=== PATIENT | male | born 1960 | race Caucasian/White ===

== ENCOUNTER 2016-11-18 14:00 | Inpatient (IN) | payer OTHER ==
[~2016-11-18] VITALS: Ht 165.1 cm; Wt 121.0 kg
[~2016-11-18 14:00] MED LIST: ADVAIR 250/501 DISK IH; ADVAIR HFA120 INHALA IH; ADVIL,NUPRIN,M200 MG PO; ALBUTEROL SULF8.5 GM IH; ATORVASTATIN CA80 MG PO; AZITHROMYCIN500 M1 PO; CARVEDILOL12.5 MG PO; CEFTIN250 MG PO; CEFTIN500 MG PO; CHILD ASPIRIN81 M1 PO; DUONEB 2.5-0.5 M3 ML AEROSOL; EFFIENT10 MG PO; FUROSEMIDE40 MG PO; LISINOPRIL20 MG PO; NICOTINE PATCH1 EAC2 TD; PREDNISONE10 MG PO; PREDNISONE2.5 MG PO; PROVENTIL,2.5 MG/0.5 AEROSOL; PROVENTIL,2.5 MG/3 M IH; RAYOS5 MG PO; SPIRIVA RESPIMAT4 GM IH; SULFASALAZINE500 MG PO; THEOPHYLLINE400 MG PO
[2016-11-18 15:03] LABS: EOSINOPHIL (%) 4.1 % (0-5); EOSINOPHIL COUNT 0.2 K/uL (0-0.3); HEMATOCRIT 51.4 % (38.0-50.0); IMMATURE GRANULOCYTE (%) 0.3 % (0.0-0.7); INSTRUMENT ABS NEUTROPHIL CT 4.2 K/uL; LYMPHOCYTE COUNT 0.8 K/uL (1.0-2.8); MCH 30.7 PG (29.0-34.0); MCV 102.6 FL (86-99); MEAN PLAT.VOLUME 10.2 uM^3 (9.0-12.4); MONOCYTE (%) 10.7 % (3-12); MONOCYTE COUNT 0.6 K/uL (0-0.8); NEUTROPHIL (%) 70.7 % (45-76); NEUTROPHIL COUNT 4.2 K/uL (1.8-6.4); PLATELET COUNT 159 K/uL (156-360); RBC DIS.WIDTH-SD 53.5 % (39-53); RED BLOOD COUNT 5.01 M/uL (4.00-5.50); WHITE BLOOD COUNT 5.9 K/uL (4.1-10.2)
[2016-11-18 15:12] LABS: CHLORIDE 97 mEq/L (99-109); POTASSIUM 4.6 mEq/L (3.7-5.4); PROTHROMBIN TIME 10.3 (9.2-11.2); PTT 26.8 (25-32); SODIUM 141 mEq/L (136-147)
[2016-11-18 15:15] LABS: GLUCOSE 146 mg/dL (70-99)
[2016-11-18 15:16] LABS: ANION GAP 7 MEQ/L (2-14)
[2016-11-18 15:17] LABS: TOTAL BILIRUBIN 0.8 mg/dL (0.0-1.0)
[2016-11-18 15:18] LABS: ALKALINE PHOSPHATASE 65 IU/L (3-129); GFR ESTIMATE (CALCULATED) > 59 mL/min/
[2016-11-18 15:19] LABS: UREA NITROGEN (BUN) 9 mg/dL (9-23)
[2016-11-18] MEDS ORDERED: LO-DOSE ASPIRIN81 M2 PO (16:44)
[2016-11-18] MEDS ORDERED: SULFASALAZINE500 MG PO (16:45)
[2016-11-18] MEDS ORDERED: SYMBICORT60 INHALAT IH (16:45)
[2016-11-18 17:34] LABS: BASE EXCESS 10.5 mEq/L (-3 to +3); BICARBONATE 41.3 mEq/L (22-26); CARBOXY HGB 3.6 % (0-5); METHEMOGLOBIN 0.4 % (0-1.5); PCO2 84 mm Hg (35-45); PO2 58 mm Hg (80-100)
[2016-11-18 17:35] LABS: COMMENTS - BLOOD GASES A+C+; DEVICE NC; O2 FLOW 5 L/MIN; SITE RR
[2016-11-18 19:00] LABS: TROP-I INTERPRETATION NEGATIVE; TROPONIN-I 0.03 ng/mL (0.0-0.30)
[2016-11-18 20:11] VITALS: BP 115/65
[2016-11-18 23:58] VITALS: BP 100/50
[2016-11-19 01:12] LABS: TROP-I INTERPRETATION NEGATIVE; TROPONIN-I 0.02 ng/mL (0.0-0.30)
[2016-11-19 04:14] VITALS: BP 117/69
[2016-11-19 06:39] LABS: ANION GAP 6 MEQ/L (2-14); CHLORIDE 94 MEQ/L (99-109); GFR ESTIMATE (CALCULATED) > 59 mL/min/; GLUCOSE 206 mg/dL (70-99); POTASSIUM 4.8 MEQ/L (3.7-5.4); SAMPLE HEMOLYSIS CHECK 0; SAMPLE ICTERIC CHECK 0; SAMPLE LIPEMIA CHECK 0; SODIUM 137 MEQ/L (136-147); UREA NITROGEN (BUN) 15 mg/dL (9-23)
[2016-11-19 06:42] LABS: TROP-I INTERPRETATION NEGATIVE; TROPONIN-I 0.03 ng/mL (0.0-0.30)
[2016-11-19 07:15] VITALS: BP 132/62
[2016-11-19 11:18] VITALS: BP 131/71
[2016-11-19 15:59] VITALS: BP 118/65
[2016-11-19 20:02] VITALS: BP 131/68
[2016-11-19 23:45] VITALS: BP 117/59
[2016-11-20 03:41] VITALS: BP 124/61
[2016-11-20 07:25] VITALS: BP 115/67
[2016-11-20 08:00] VITALS: BP 115/67
[2016-11-20 11:05] VITALS: BP 124/68
[2016-11-20 13:07] LABS: HEMATOCRIT 49.9 % (38.0-50.0); MCH 30.7 PG (29.0-34.0); MCHC 30.9 G/DL (30.0-36.0); MCV 99.6 FL (86-99); PLATELET COUNT 174 K/uL (156-360); RBC DIS.WIDTH-CV 14.1 % (11.8-14.6); RBC DIS.WIDTH-SD 51.6 % (39-53); RED BLOOD COUNT 5.01 M/uL (4.00-5.50)
[2016-11-20 13:12] LABS: WHITE BLOOD COUNT 13.6 K/uL (4.1-10.2)
[2016-11-20 13:30] LABS: ANION GAP 5 MEQ/L (2-14); CHLORIDE 95 MEQ/L (99-109); GFR ESTIMATE (CALCULATED) > 59 mL/min/; GLUCOSE 187 mg/dL (70-99); POTASSIUM 4.1 MEQ/L (3.7-5.4); SAMPLE HEMOLYSIS CHECK 0; SAMPLE ICTERIC CHECK 0; SAMPLE LIPEMIA CHECK 0; SODIUM 138 MEQ/L (136-147); UREA NITROGEN (BUN) 14 mg/dL (9-23)
[2016-11-20 15:21] VITALS: BP 127/69
[2016-11-20 19:14] VITALS: BP 136/71
[2016-11-21 00:01] VITALS: BP 127/68
[2016-11-21 03:30] VITALS: BP 117/71
[2016-11-21 07:16] VITALS: BP 141/75
[2016-11-21 10:55] VITALS: BP 132/66
[2016-11-21 13:16] LABS: HEMATOCRIT 49.2 % (38.0-50.0); MCH 31.1 PG (29.0-34.0); MCHC 31.3 G/DL (30.0-36.0); MCV 99.4 FL (86-99); MEAN PLAT.VOLUME 11.1 uM^3 (9.0-12.4); PLATELET COUNT 171 K/uL (156-360); RBC DIS.WIDTH-CV 14.3 % (11.8-14.6); RBC DIS.WIDTH-SD 51.6 % (39-53); RED BLOOD COUNT 4.95 M/uL (4.00-5.50); WHITE BLOOD COUNT 13.3 K/uL (4.1-10.2)
[2016-11-21 13:42] LABS: ANION GAP 7 MEQ/L (2-14); CHLORIDE 94 MEQ/L (99-109); GFR ESTIMATE (CALCULATED) > 59 mL/min/; GLUCOSE 224 mg/dL (70-99); SAMPLE HEMOLYSIS CHECK 0; SAMPLE ICTERIC CHECK 0; SAMPLE LIPEMIA CHECK 0; SODIUM 139 MEQ/L (136-147); UREA NITROGEN (BUN) 17 mg/dL (9-23)
[2016-11-21 15:29] VITALS: BP 120/60
[2016-11-21 21:13] VITALS: BP 114/59
[2016-11-22 04:00] VITALS: BP 110/60
[2016-11-22 08:50] VITALS: BP 129/69
[2016-11-22 10:37] LABS: HEMATOCRIT 50.6 % (38.0-50.0); MCH 30.7 PG (29.0-34.0); MEAN PLAT.VOLUME 11.2 uM^3 (9.0-12.4); PLATELET COUNT 169 K/uL (156-360); RBC DIS.WIDTH-CV 14.1 % (11.8-14.6); RBC DIS.WIDTH-SD 51.9 % (39-53); RED BLOOD COUNT 5.11 M/uL (4.00-5.50); WHITE BLOOD COUNT 10.5 K/uL (4.1-10.2)
[2016-11-22 10:45] LABS: ANION GAP 11 MEQ/L (2-14); CHLORIDE 98 MEQ/L (99-109); GFR ESTIMATE (CALCULATED) > 59 mL/min/; GLUCOSE 245 mg/dL (70-99); POTASSIUM 4.1 MEQ/L (3.7-5.4); SAMPLE HEMOLYSIS CHECK 0; SAMPLE ICTERIC CHECK 0; SAMPLE LIPEMIA CHECK 0; SODIUM 142 MEQ/L (136-147); UREA NITROGEN (BUN) 15 mg/dL (9-23)
[2016-11-22 12:18] VITALS: BP 144/77
[2016-11-22] MEDS ORDERED: NICOTINE PATCH1 EAC1 TD (12:22)
[2016-11-22] MEDS ORDERED: CEFDINIR300 MG PO (12:22)
[2016-11-22] MEDS ORDERED: PREDNISONE10 M1 PO (12:46)
[2016-11-22] MEDS ORDERED: OMEPRAZOLE20 MG PO (12:46)
== END 2016-11-22 14:20 | disposition home or self-care (01) | DRG 189 ==
LOC: EME 14:00 → EDOF 18:09 → 4EAST 18:09
PROVIDERS: Emergency Medicine; Physician Assistant; Student in an Organized Health Care Education/Training Program
DX: J96.22 Acute and chronic respiratory failure with hypercapnia (principal); J44.1 Chronic obstructive pulmonary disease with (acute) exacerbation; Z68.41 Body mass index [BMI] 40.0-44.9, adult; Z99.81 Dependence on supplemental oxygen; F10.10 Alcohol abuse, uncomplicated; T14.8 Other injury of unspecified body region; X50.1XXA Overexertion from prolonged static or awkward postures, initial encounter; E66.9 Obesity, unspecified; G47.33 Obstructive sleep apnea (adult) (pediatric); I25.10 Atherosclerotic heart disease of native coronary artery without angina pectoris; F17.210 Nicotine dependence, cigarettes, uncomplicated; I10 Essential (primary) hypertension; E78.5 Hyperlipidemia, unspecified; M19.90 Unspecified osteoarthritis, unspecified site; Z91.19 Patient's noncompliance with other medical treatment and regimen; Z95.1 Presence of aortocoronary bypass graft; Z95.5 Presence of coronary angioplasty implant and graft
CPT/HCPCS: 36600; 71010; 71101; 71250; 80048; 80053; 82803; 83735; 84484; 85025; 85027; 85610; 85730; 93005; 94640; 94640 76; 94667; 94668; 94799; 99202; 99281; 99285; J0696; J1650; J1885; J2920; J2930; J7050

== ENCOUNTER 2017-01-13 22:05 | Inpatient (IN) | payer OTHER ==
[~2017-01-13] VITALS: Ht 165.1 cm; Wt 124.5 kg
[~2017-01-13 22:05] MED LIST changes: +CEFDINIR300 MG PO; +LO-DOSE ASPIRIN81 M2 PO; +NICOTINE PATCH1 EAC1 TD; +OMEPRAZOLE20 MG PO; +PREDNISONE10 M1 PO; +SYMBICORT60 INHALAT IH
[2017-01-13 23:43] LABS: HEMATOCRIT 47.4 % (38.0-50.0); MCH 31.6 PG (29.0-34.0); MCHC 31.6 G/DL (30.0-36.0); MCV 99.8 FL (86-99); MEAN PLAT.VOLUME 10.6 uM^3 (9.0-12.4); PLATELET COUNT 133 K/uL (156-360); RBC DIS.WIDTH-CV 13.5 % (11.8-14.6); RBC DIS.WIDTH-SD 50.6 % (39-53); RED BLOOD COUNT 4.75 M/uL (4.00-5.50); WHITE BLOOD COUNT 7.7 K/uL (4.1-10.2)
[2017-01-13 23:54] LABS: CHLORIDE 97 mEq/L (99-109); POTASSIUM 4.4 mEq/L (3.7-5.4); SODIUM 135 mEq/L (136-147)
[2017-01-13 23:55] LABS: GLUCOSE 177 mg/dL (70-99)
[2017-01-13 23:57] LABS: ANION GAP 8 MEQ/L (2-14)
[2017-01-13 23:59] LABS: GFR ESTIMATE (CALCULATED) > 59 mL/min/
[2017-01-14] VITALS (21 sets, daily range): BP systolic 79–142; BP diastolic 45–82
[2017-01-14] LABS: UREA NITROGEN (BUN) 11 mg/dL (9-23)
[2017-01-14 00:03] LABS: TROP-I INTERPRETATION NEGATIVE; TROPONIN-I 0.03 ng/mL (0.0-0.30)
[2017-01-14 00:52] LABS: BASE EXCESS 6.7 mEq/L (-3 to +3); BICARBONATE 38.1 mEq/L (22-26); CARBOXY HGB 3.3 % (0-5); METHEMOGLOBIN 0.7 % (0-1.5); PO2 60 mm Hg (80-100)
[2017-01-14 00:53] LABS: PCO2 89 mm Hg (35-45)
[2017-01-14 00:54] LABS: COMMENTS - BLOOD GASES C+A+; DEVICE NC; O2 FLOW 4 L/MIN; SITE RR; TOTAL RESP RATE 32 resp/min; pH 7.24 (7.35-7.45)
[2017-01-14 02:51] LABS: BASE EXCESS 4.6 mEq/L (-3 to +3); BICARBONATE 34.3 mEq/L (22-26); CARBOXY HGB 2.3 % (0-5); METHEMOGLOBIN 0.7 % (0-1.5)
[2017-01-14 02:54] LABS: COMMENTS - BLOOD GASES C+A+; DEVICE VENTILATOR; FI02 80 %; MECHANICAL RATE 18 resp/min; MODE AC; PCO2 73 mm Hg (35-45); PO2 151 mm Hg (80-100); SITE LB; TOTAL RESP RATE 18 resp/min
[2017-01-14 02:55] LABS: PEEP 8 CM/H20; TIDAL VOLUME 550 ML; pH 7.28 (7.35-7.45)
[2017-01-14 09:08] LABS: METH RESISTANT S AUREUS PCR NEGATIVE (NEGATIVE); PROBE CHECK PASS; SPECIMEN PROCESSING CONTROL PASS
[2017-01-14 09:29] LABS: ANION GAP 8 MEQ/L (2-14); CHLORIDE 97 MEQ/L (99-109); MAGNESIUM 1.8 mg/dl (1.3-2.7); POTASSIUM 4.8 MEQ/L (3.7-5.4); SAMPLE HEMOLYSIS CHECK 0; SAMPLE ICTERIC CHECK 0; SAMPLE LIPEMIA CHECK 0; SODIUM 136 MEQ/L (136-147)
[2017-01-14 09:35] LABS: GFR ESTIMATE (CALCULATED) > 59 mL/min/; GLUCOSE 136 mg/dL (70-99); UREA NITROGEN (BUN) 15 mg/dL (9-23)
[2017-01-14 09:49] LABS: EOSINOPHIL (%) 0 % (0-5); HEMATOCRIT 43.9 % (38.0-50.0); IMMATURE GRANULOCYTE (%) 0.4 % (0.0-0.7); INSTRUMENT ABS NEUTROPHIL CT 4.6 K/uL; LYMPHOCYTE COUNT 0.4 K/uL (1.0-2.8); MCH 32.4 PG (29.0-34.0); MCHC 32.8 G/DL (30.0-36.0); MCV 98.7 FL (86-99); MEAN PLAT.VOLUME 10.6 uM^3 (9.0-12.4); MONOCYTE (%) 2.9 % (3-12); MONOCYTE COUNT 0.2 K/uL (0-0.8); NEUTROPHIL (%) 89.5 % (45-76); NEUTROPHIL COUNT 4.6 K/uL (1.8-6.4); PLATELET COUNT 145 K/uL (156-360); RBC DIS.WIDTH-CV 13.3 % (11.8-14.6); RBC DIS.WIDTH-SD 48.8 % (39-53); RED BLOOD COUNT 4.45 M/uL (4.00-5.50); WHITE BLOOD COUNT 5.1 K/uL (4.1-10.2)
[2017-01-14 16:09] LABS: BASE EXCESS 7.5 mEq/L (-3 to +3); BICARBONATE 34.1 mEq/L (22-26); CARBOXY HGB 1.2 % (0-5); METHEMOGLOBIN 1.4 % (0-1.5)
[2017-01-14 16:10] LABS: COMMENTS - BLOOD GASES A+C+; DEVICE 840; FI02 60 %; MECHANICAL RATE 18 resp/min; MODE A/C; PCO2 55 mm Hg (35-45); PEEP 8 CM/H20; PO2 55 mm Hg (80-100); SITE RR; TIDAL VOLUME 550 ML
[2017-01-14 17:42] LABS: POINT-OF-CARE METER ID UU14174217
[2017-01-14] MEDS ORDERED: SULFASALAZINE500 MG PO (20:48)
[2017-01-14] MEDS ORDERED: LIPITOR80 MG PO (20:49)
[2017-01-14] MEDS ORDERED: PRINIVIL20 MG PO (20:49)
[2017-01-14] MEDS ORDERED: COREG12.5 M1 PO (20:50)
[2017-01-14] MEDS ORDERED: LO-DOSE ASPIRIN81 M2 PO (20:51)
[2017-01-14] MEDS ORDERED: LASIX40 MG PO (20:51)
[2017-01-14] MEDS ORDERED: PREDNISONE2.5 MG PO (20:51)
[2017-01-14] MEDS ORDERED: ADVAIR 250/501 DISK IH (20:52)
[2017-01-15] VITALS (19 sets, daily range): BP systolic 99–119; BP diastolic 50–74
[2017-01-15 05:50] LABS: POINT-OF-CARE METER ID UU13113803
[2017-01-15 06:33] LABS: MCH 31.8 PG (29.0-34.0); MCV 96.4 FL (86-99); PLATELET COUNT 147 K/uL (156-360); RBC DIS.WIDTH-CV 13.4 % (11.8-14.6); RBC DIS.WIDTH-SD 47.6 % (39-53); RED BLOOD COUNT 3.84 M/uL (4.00-5.50); WHITE BLOOD COUNT 9.1 K/uL (4.1-10.2)
[2017-01-15 06:44] LABS: ALKALINE PHOSPHATASE 39 IU/L (3-129); ANION GAP 9 MEQ/L (2-14); CHLORIDE 99 MEQ/L (99-109); GFR ESTIMATE (CALCULATED) > 59 mL/min/; GLUCOSE 156 mg/dL (70-99); POTASSIUM 4.2 MEQ/L (3.7-5.4); SAMPLE HEMOLYSIS CHECK 0; SAMPLE ICTERIC CHECK 0; SAMPLE LIPEMIA CHECK 0; SODIUM 137 MEQ/L (136-147); TOTAL BILIRUBIN 0.4 MG/DL (0.0-1.0); UREA NITROGEN (BUN) 19 mg/dL (9-23)
[2017-01-15 12:12] LABS: MAGNESIUM 2.3 mg/dl (1.3-2.7)
[2017-01-15 12:33] LABS: POINT-OF-CARE USER ID 612031313
[2017-01-15 17:33] LABS: POINT-OF-CARE USER ID 612031313
[2017-01-16] VITALS (24 sets, daily range): BP systolic 104–132; BP diastolic 52–73
[2017-01-16 00:49] LABS: POINT-OF-CARE METER ID UU13113803
[2017-01-16 06:25] LABS: POINT-OF-CARE METER ID UU14174217
[2017-01-16 07:23] LABS: HEMATOCRIT 38.4 % (38.0-50.0); MCH 32.1 PG (29.0-34.0); MCHC 32.6 G/DL (30.0-36.0); MCV 98.5 FL (86-99); MEAN PLAT.VOLUME 11.1 uM^3 (9.0-12.4); PLATELET COUNT 156 K/uL (156-360); RBC DIS.WIDTH-CV 14.1 % (11.8-14.6); RBC DIS.WIDTH-SD 51.1 % (39-53); WHITE BLOOD COUNT 10.9 K/uL (4.1-10.2)
[2017-01-16 10:16] LABS: BASE EXCESS 6.6 mEq/L (-3 to +3); BICARBONATE 34.5 mEq/L (22-26); CARBOXY HGB 0.9 % (0-5); METHEMOGLOBIN 1.3 % (0-1.5); pH 7.34 (7.35-7.45)
[2017-01-16 10:17] LABS: COMMENTS - BLOOD GASES NEG A+C+; DEVICE VENT; FI02 60 %; MODE SPONT; PCO2 64 mm Hg (35-45); PO2 77 mm Hg (80-100); PRES. SUPPORT 12 CM/H2O; SITE RR; TOTAL RESP RATE 15 resp/min
[2017-01-16 10:18] LABS: PEEP 8 CM/H20
[2017-01-16 15:19] LABS: EOSINOPHIL (%) 0 % (0-5); HEMATOCRIT 40.9 % (38.0-50.0); IMMATURE GRANULOCYTE (%) 0.6 % (0.0-0.7); IMMATURE GRANULOCYTE COUNT 0.1 K/uL; INSTRUMENT ABS NEUTROPHIL CT 9.5 K/uL; LYMPHOCYTE COUNT 0.5 K/uL (1.0-2.8); MCH 31.7 PG (29.0-34.0); MEAN PLAT.VOLUME 10.8 uM^3 (9.0-12.4); MONOCYTE COUNT 0.8 K/uL (0-0.8); NEUTROPHIL COUNT 9.5 K/uL (1.8-6.4); PLATELET COUNT 157 K/uL (156-360); RBC DIS.WIDTH-SD 50.9 % (39-53); RED BLOOD COUNT 4.13 M/uL (4.00-5.50); WHITE BLOOD COUNT 10.8 K/uL (4.1-10.2)
[2017-01-16 15:25] LABS: CHLORIDE 103 mEq/L (99-109); POTASSIUM 4.6 mEq/L (3.7-5.4); SODIUM 140 mEq/L (136-147)
[2017-01-16 15:26] LABS: MAGNESIUM 2.2 mg/dL (1.3-2.7)
[2017-01-16 15:28] LABS: GLUCOSE 160 mg/dL (70-99)
[2017-01-16 15:29] LABS: ANION GAP 7 MEQ/L (2-14)
[2017-01-16 15:30] LABS: TOTAL BILIRUBIN 0.3 mg/dL (0.0-1.0)
[2017-01-16 15:32] LABS: ALKALINE PHOSPHATASE 42 IU/L (3-129); GFR ESTIMATE (CALCULATED) > 59 mL/min/
[2017-01-16 15:33] LABS: DIRECT BILIRUBIN 0.2 mg/dL (0.0-0.3); UREA NITROGEN (BUN) 17 mg/dL (9-23)
[2017-01-16 17:57] LABS: POINT-OF-CARE METER ID UU13113731
[2017-01-16 21:49] LABS: BASE EXCESS 6.6 mEq/L (-3 to +3); CARBOXY HGB 1.1 % (0-5); METHEMOGLOBIN 1.3 % (0-1.5); PCO2 68 mm Hg (35-45); PO2 72 mm Hg (80-100); pH 7.32 (7.35-7.45)
[2017-01-16 21:50] LABS: COMMENTS - BLOOD GASES C+; DEVICE VENT; FI02 50 %; MODE SPONT; PEEP 8 CM/H20; PRES. SUPPORT 15 CM/H2O; SITE RR; TOTAL RESP RATE 18 resp/min
[2017-01-17] VITALS (23 sets, daily range): BP systolic 118–152; BP diastolic 53–88
[2017-01-17 01:54] LABS: BASE EXCESS 7.3 mEq/L (-3 to +3); BICARBONATE 36.4 mEq/L (22-26); CARBOXY HGB 1.2 % (0-5); COMMENTS - BLOOD GASES C+; DEVICE MASK VENT; FI02 40 %; METHEMOGLOBIN 1.1 % (0-1.5); MODE SPONT; PCO2 74 mm Hg (35-45); PO2 59 mm Hg (80-100); SITE RR
[2017-01-17 01:55] LABS: PEEP 8 CM/H20; PRES. SUPPORT 5 CM/H2O; TOTAL RESP RATE 20 resp/min
[2017-01-17 05:40] LABS: POINT-OF-CARE METER ID UU14162636
[2017-01-17 06:02] LABS: EOSINOPHIL (%) 0 % (0-5); HEMATOCRIT 42.9 % (38.0-50.0); IMMATURE GRANULOCYTE (%) 0.3 % (0.0-0.7); INSTRUMENT ABS NEUTROPHIL CT 8.2 K/uL; LYMPHOCYTE COUNT 0.6 K/uL (1.0-2.8); MCH 31.7 PG (29.0-34.0); MCHC 31.5 G/DL (30.0-36.0); MCV 100.7 FL (86-99); MEAN PLAT.VOLUME 10.5 uM^3 (9.0-12.4); MONOCYTE (%) 6.5 % (3-12); MONOCYTE COUNT 0.6 K/uL (0-0.8); NEUTROPHIL (%) 86.4 % (45-76); NEUTROPHIL COUNT 8.2 K/uL (1.8-6.4); PLATELET COUNT 161 K/uL (156-360); RBC DIS.WIDTH-CV 13.9 % (11.8-14.6); RED BLOOD COUNT 4.26 M/uL (4.00-5.50); WHITE BLOOD COUNT 9.5 K/uL (4.1-10.2)
[2017-01-17 06:36] LABS: ANION GAP 6 MEQ/L (2-14); CHLORIDE 100 MEQ/L (99-109); GFR ESTIMATE (CALCULATED) > 59 mL/min/; GLUCOSE 139 mg/dL (70-99); MAGNESIUM 2.2 mg/dl (1.3-2.7); POTASSIUM 4.3 MEQ/L (3.7-5.4); SAMPLE HEMOLYSIS CHECK 0; SAMPLE ICTERIC CHECK 0; SAMPLE LIPEMIA CHECK 0; SODIUM 139 MEQ/L (136-147); UREA NITROGEN (BUN) 18 mg/dL (9-23)
[2017-01-17 12:54] LABS: POINT-OF-CARE METER ID UU14162636
[2017-01-17 17:42] LABS: POINT-OF-CARE METER ID UU14162636
[2017-01-17 23:43] LABS: POINT-OF-CARE METER ID UU14162636
[2017-01-18] VITALS (13 sets, daily range): BP systolic 113–153; BP diastolic 52–87
[2017-01-18 06:20] LABS: POINT-OF-CARE METER ID UU14174217
[2017-01-18 06:23] LABS: HEMATOCRIT 43.5 % (38.0-50.0); MCH 31.7 PG (29.0-34.0); MCHC 32.2 G/DL (30.0-36.0); MCV 98.6 FL (86-99); MEAN PLAT.VOLUME 10.6 uM^3 (9.0-12.4); PLATELET COUNT 164 K/uL (156-360); RBC DIS.WIDTH-CV 13.3 % (11.8-14.6); RBC DIS.WIDTH-SD 49.5 % (39-53); RED BLOOD COUNT 4.41 M/uL (4.00-5.50); WHITE BLOOD COUNT 9.9 K/uL (4.1-10.2)
[2017-01-18 06:47] LABS: ANION GAP 8 MEQ/L (2-14); CHLORIDE 100 MEQ/L (99-109); GFR ESTIMATE (CALCULATED) > 59 mL/min/; GLUCOSE 118 mg/dL (70-99); POTASSIUM 4.4 MEQ/L (3.7-5.4); SAMPLE HEMOLYSIS CHECK 0; SAMPLE ICTERIC CHECK 0; SAMPLE LIPEMIA CHECK 0; SODIUM 141 MEQ/L (136-147); UREA NITROGEN (BUN) 19 mg/dL (9-23)
[2017-01-18 07:00] LABS: EOSINOPHIL (%) 0 % (0-5); IMMATURE GRANULOCYTE (%) 0.6 % (0.0-0.7); IMMATURE GRANULOCYTE COUNT 0.1 K/uL; LYMPHOCYTE COUNT 1.1 K/uL (1.0-2.8); MONOCYTE (%) 8.2 % (3-12); MONOCYTE COUNT 0.8 K/uL (0-0.8); NEUTROPHIL (%) 80.4 % (45-76)
[2017-01-18 10:25] LABS: BASE EXCESS 12.1 mEq/L (-3 to +3); BICARBONATE 39.9 mEq/L (22-26); CARBOXY HGB 1.2 % (0-5); COMMENTS - BLOOD GASES A+C+; DEVICE NC; METHEMOGLOBIN 1.3 % (0-1.5); O2 FLOW 3.5 L/MIN; PCO2 63 mm Hg (35-45); PO2 54 mm Hg (80-100); SITE RR; pH 7.41 (7.35-7.45)
[2017-01-18 10:26] LABS: TOTAL RESP RATE 16 resp/min
[2017-01-18 13:56] LABS: POINT-OF-CARE METER ID UU14174217
[2017-01-18 21:01] LABS: POINT-OF-CARE USER ID ENVMNS
[2017-01-19] VITALS (7 sets, daily range): BP systolic 110–144; BP diastolic 57–87
[2017-01-19 07:49] LABS: HEMATOCRIT 48.9 % (38.0-50.0); MCH 31.9 PG (29.0-34.0); MCHC 32.3 G/DL (30.0-36.0); MCV 98.6 FL (86-99); MEAN PLAT.VOLUME 10.6 uM^3 (9.0-12.4); PLATELET COUNT 193 K/uL (156-360); RBC DIS.WIDTH-CV 13.4 % (11.8-14.6); RBC DIS.WIDTH-SD 49.3 % (39-53); RED BLOOD COUNT 4.96 M/uL (4.00-5.50)
[2017-01-19 08:14] LABS: ANION GAP 7 MEQ/L (2-14); CHLORIDE 96 MEQ/L (99-109); GFR ESTIMATE (CALCULATED) > 59 mL/min/; GLUCOSE 96 mg/dL (70-99); POTASSIUM 3.8 MEQ/L (3.7-5.4); SAMPLE HEMOLYSIS CHECK 0; SAMPLE ICTERIC CHECK 0; SAMPLE LIPEMIA CHECK 0; SODIUM 142 MEQ/L (136-147); UREA NITROGEN (BUN) 21 mg/dL (9-23)
[2017-01-19 08:26] LABS: EOSINOPHIL (%) 0.3 % (0-5); IMMATURE GRANULOCYTE (%) 0.7 % (0.0-0.7); IMMATURE GRANULOCYTE COUNT 0.1 K/uL; INSTRUMENT ABS NEUTROPHIL CT 7.4 K/uL; LYMPHOCYTE COUNT 2.5 K/uL (1.0-2.8); MONOCYTE (%) 8.7 % (3-12); NEUTROPHIL (%) 67.4 % (45-76); NEUTROPHIL COUNT 7.4 K/uL (1.8-6.4)
[2017-01-20 04:06] VITALS: BP 119/70
[2017-01-20 06:31] LABS: EOSINOPHIL (%) 0.1 % (0-5); HEMATOCRIT 47.9 % (38.0-50.0); IMMATURE GRANULOCYTE (%) 0.7 % (0.0-0.7); IMMATURE GRANULOCYTE COUNT 0.1 K/uL; INSTRUMENT ABS NEUTROPHIL CT 9.7 K/uL; LYMPHOCYTE COUNT 1.1 K/uL (1.0-2.8); MCH 31.4 PG (29.0-34.0); MCHC 31.9 G/DL (30.0-36.0); MCV 98.2 FL (86-99); MEAN PLAT.VOLUME 10.4 uM^3 (9.0-12.4); MONOCYTE (%) 5.4 % (3-12); MONOCYTE COUNT 0.6 K/uL (0-0.8); NEUTROPHIL (%) 84.1 % (45-76); NEUTROPHIL COUNT 9.7 K/uL (1.8-6.4); PLATELET COUNT 198 K/uL (156-360); RBC DIS.WIDTH-CV 13.2 % (11.8-14.6); RBC DIS.WIDTH-SD 48.5 % (39-53); RED BLOOD COUNT 4.88 M/uL (4.00-5.50); WHITE BLOOD COUNT 11.6 K/uL (4.1-10.2)
[2017-01-20 06:58] VITALS: BP 135/81
[2017-01-20 06:58] LABS: ANION GAP 8 MEQ/L (2-14); CHLORIDE 94 MEQ/L (99-109); GFR ESTIMATE (CALCULATED) > 59 mL/min/; MAGNESIUM 2.1 mg/dl (1.3-2.7); POTASSIUM 4.1 MEQ/L (3.7-5.4); SAMPLE HEMOLYSIS CHECK 0; SAMPLE ICTERIC CHECK 0; SAMPLE LIPEMIA CHECK 0; SODIUM 139 MEQ/L (136-147); UREA NITROGEN (BUN) 19 mg/dL (9-23)
[2017-01-20 07:00] LABS: GLUCOSE 219 mg/dL (70-99)
[2017-01-20] MEDS ORDERED: PREDNISONE5 MG PO (09:02)
[2017-01-20] MEDS ORDERED: DUONEB 2.5-0.5 M3 ML AEROSOL (09:02)
[2017-01-20] MEDS ORDERED: FOLIC ACID1 MG PO (09:02)
[2017-01-20] MEDS ORDERED: Thiamine,Vitamin B1 PO (09:02)
== END 2017-01-20 10:11 | disposition home or self-care (01) | DRG 190 ==
LOC: EME 22:05 → 4WEST 01-14 01:59 → EDOF 01-14 01:59 → 4WEST 01-14 03:03 → 4EAST 01-18 16:41
PROVIDERS: Emergency Medicine; Internal Medicine; Internal Medicine Nephrology; Psychiatry & Neurology Neurology
PROC: 0BH17EZ Insertion of Endotracheal Airway into Trachea, Via Natural or Artificial Opening (ICD-10-PCS; principal; 2017-01-14)
DX: J44.1 Chronic obstructive pulmonary disease with (acute) exacerbation (principal); J96.21 Acute and chronic respiratory failure with hypoxia; G92 Toxic encephalopathy; E87.2 Acidosis; G93.1 Anoxic brain damage, not elsewhere classified; Z68.42 Body mass index [BMI] 45.0-49.9, adult; I50.22 Chronic systolic (congestive) heart failure; F33.9 Major depressive disorder, recurrent, unspecified; J98.11 Atelectasis; F17.210 Nicotine dependence, cigarettes, uncomplicated; E66.9 Obesity, unspecified; E87.70 Fluid overload, unspecified; E78.5 Hyperlipidemia, unspecified; I25.10 Atherosclerotic heart disease of native coronary artery without angina pectoris; I10 Essential (primary) hypertension; K21.9 Gastro-esophageal reflux disease without esophagitis; Z99.81 Dependence on supplemental oxygen; I25.2 Old myocardial infarction; Z95.1 Presence of aortocoronary bypass graft; Z79.52 Long term (current) use of systemic steroids
CPT/HCPCS: 36600; 71010; 71020; 80048; 80053; 80076; 82803; 82948; 83605; 83735; 83880; 84100; 84484; 85025; 85027; 87040; 87070; 87205; 87641; 93005; 94002; 94003; 94010; 94640; 94640 76; 94644; 94645; 94760; 94799; 99202; 99281; 99285; J0461; J1650; J1815; J1940; J1956; J2060; J2704; J2920; J2930; J3010; J3475; J7030; J7050; J7512; P9045; S0028

== ENCOUNTER 2017-03-15 17:08 | Inpatient (IN) | payer OTHER ==
[~2017-03-15] VITALS: Ht 165.1 cm; Wt 120.3 kg
[~2017-03-15 17:08] MED LIST changes: +COREG12.5 M1 PO; +FOLIC ACID1 MG PO; +LASIX40 MG PO; +LIPITOR80 MG PO; +PREDNISONE5 MG PO; +PRINIVIL20 MG PO; +Thiamine,Vitamin B1 PO
[2017-03-15 19:56] LABS: EOSINOPHIL (%) 3.8 % (0-5); EOSINOPHIL COUNT 0.3 K/uL (0-0.3); IMMATURE GRANULOCYTE (%) 0.3 % (0.0-0.7); INSTRUMENT ABS NEUTROPHIL CT 5.1 K/uL; LYMPHOCYTE COUNT 0.7 K/uL (1.0-2.8); MCH 32.2 PG (29.0-34.0); MCHC 30.8 G/DL (30.0-36.0); MCV 104.3 FL (86-99); MEAN PLAT.VOLUME 10.7 uM^3 (9.0-12.4); MONOCYTE (%) 10.6 % (3-12); MONOCYTE COUNT 0.7 K/uL (0-0.8); NEUTROPHIL (%) 75.1 % (45-76); NEUTROPHIL COUNT 5.1 K/uL (1.8-6.4); PLATELET COUNT 139 K/uL (156-360); RBC DIS.WIDTH-CV 13.1 % (11.8-14.6); RBC DIS.WIDTH-SD 50.3 % (39-53); WHITE BLOOD COUNT 6.8 K/uL (4.1-10.2)
[2017-03-15 20:01] LABS: CARBON DIOXIDE (BICARBONATE) > 40.0 MEQ/L (20-31); VENOUS PCO2 97 mm Hg (41-51)
[2017-03-15 20:03] LABS: CHLORIDE 97 mEq/L (99-109); POTASSIUM 4.6 mEq/L (3.7-5.4); SODIUM 144 mEq/L (136-147)
[2017-03-15 20:05] LABS: GLUCOSE 88 mg/dL (70-99)
[2017-03-15 20:06] LABS: ANION GAP 13 MEQ/L (2-14)
[2017-03-15 20:09] LABS: GFR ESTIMATE (CALCULATED) > 59 mL/min/; UREA NITROGEN (BUN) 10 mg/dL (9-23)
[2017-03-15 22:53] LABS: CARBOXY HGB 2.7 % (0-5); METHEMOGLOBIN 1.3 % (0-1.5)
[2017-03-15 22:54] LABS: BICARBONATE 45.2 mEq/L (22-26); PCO2 121 mm Hg (35-45); PO2 299 mm Hg (80-100); pH 7.18 (7.35-7.45)
[2017-03-15 22:55] LABS: COMMENTS - BLOOD GASES A+C+; DEVICE 840 VENT; FI02 100 %; MODE SPONT; PEEP 5 CM/H20; PRES. SUPPORT 10 CM/H2O; SITE RR; TOTAL RESP RATE 20 resp/min
[2017-03-16] VITALS (24 sets, daily range): BP systolic 69–134; BP diastolic 37–72
[2017-03-16 02:04] LABS: METH RESISTANT S AUREUS PCR NEGATIVE (NEGATIVE)
[2017-03-16 02:07] LABS: PROBE CHECK PASS; SPECIMEN PROCESSING CONTROL PASS
[2017-03-16 02:12] LABS: BASE EXCESS 10.6 mEq/L (-3 to +3); BICARBONATE 40.8 mEq/L (22-26); CARBOXY HGB 2.7 % (0-5); COMMENTS - BLOOD GASES A+C+; DEVICE VENT; FI02 80 %; MECHANICAL RATE 20 resp/min; METHEMOGLOBIN 1.3 % (0-1.5); MODE A/C; PCO2 83 mm Hg (35-45); PEEP 5 CM/H20; PO2 83 mm Hg (80-100); SITE RR; TIDAL VOLUME 450 ML; TOTAL RESP RATE 20 resp/min
[2017-03-16 06:59] LABS: EOSINOPHIL (%) 0 % (0-5); HEMATOCRIT 43.8 % (38.0-50.0); IMMATURE GRANULOCYTE (%) 0.4 % (0.0-0.7); INSTRUMENT ABS NEUTROPHIL CT 4.9 K/uL; LYMPHOCYTE COUNT 0.4 K/uL (1.0-2.8); MCH 33.3 PG (29.0-34.0); MEAN PLAT.VOLUME 11.3 uM^3 (9.0-12.4); MONOCYTE (%) 1.5 % (3-12); MONOCYTE COUNT 0.1 K/uL (0-0.8); NEUTROPHIL (%) 91.4 % (45-76); NEUTROPHIL COUNT 4.9 K/uL (1.8-6.4); PLATELET COUNT 129 K/uL (156-360); RBC DIS.WIDTH-SD 49.9 % (39-53); RED BLOOD COUNT 4.21 M/uL (4.00-5.50); WHITE BLOOD COUNT 5.4 K/uL (4.1-10.2)
[2017-03-16 07:15] LABS: ADD MIUA? YES; BILIRUBIN NEGATIVE; BLOOD NEGATIVE; COLOR AMBER ((YELLOW)); GLUCOSE (STRIP) NEGATIVE; KETONES 20; LEUKOCYTES NEGATIVE; NITRITE NEGATIVE; PROTEIN (STRIP) 30; SPECIFIC GRAVITY 1.025 (1.000-1.030); UROBILINOGEN 0.2 MG/DL (0.2-1.0)
[2017-03-16 07:33] LABS: BACTERIA NONE SEEN /HPF; EPITHELIAL CELLS RARE /HPF; MUCUS TRACE /LPF; RED BLOOD CELLS 0-5 /HPF (0-5); UCUL ADDED? NO; WHITE BLOOD CELLS 0-5 /HPF (0-5)
[2017-03-17] VITALS (18 sets, daily range): BP systolic 120–152; BP diastolic 59–87
[2017-03-17 04:56] LABS: CHLORIDE 104 mEq/L (99-109); POTASSIUM 4.2 mEq/L (3.7-5.4); SODIUM 142 mEq/L (136-147)
[2017-03-17 05:00] LABS: ANION GAP 11 MEQ/L (2-14)
[2017-03-17 05:02] LABS: GFR ESTIMATE (CALCULATED) > 59 mL/min/
[2017-03-17 05:04] LABS: GLUCOSE 135 mg/dL (70-99); UREA NITROGEN (BUN) 26 mg/dL (9-23)
[2017-03-17] MEDS ORDERED: LO-DOSE ASPIRIN81 M2 PO (19:37)
[2017-03-17] MEDS ORDERED: BRILINTA90 MG PO (19:38)
[2017-03-17] MEDS ORDERED: ATORVASTATIN CA80 MG PO (19:39)
[2017-03-17] MEDS ORDERED: SULFAZINE500 M1 PO (19:39)
[2017-03-17] MEDS ORDERED: FUROSEMIDE40 MG PO (19:40)
[2017-03-17] MEDS ORDERED: CARVEDILOL12.5 MG PO (19:41)
[2017-03-17] MEDS ORDERED: LISINOPRIL20 MG PO (19:41)
[2017-03-17] MEDS ORDERED: SYMBICORT60 INHALAT IH (19:49)
[2017-03-17] MEDS ORDERED: VENTOLIN HFA18 GM IH (19:50)
[2017-03-18] VITALS: BP 126/71
[2017-03-18 03:53] VITALS: BP 132/60
[2017-03-18 07:45] VITALS: BP 132/62
[2017-03-18] MEDS ORDERED: PROVENTIL,2.5 MG/3 M AEROSOL (12:05)
[2017-03-18 15:45] VITALS: BP 142/73
[2017-03-18 23:55] VITALS: BP 121/67
[2017-03-19 07:56] VITALS: BP 132/69
[2017-03-19 10:17] LABS: EOSINOPHIL (%) 0 % (0-5); HEMATOCRIT 42.4 % (38.0-50.0); IMMATURE GRANULOCYTE (%) 0.3 % (0.0-0.7); INSTRUMENT ABS NEUTROPHIL CT 9.1 K/uL; LYMPHOCYTE COUNT 0.3 K/uL (1.0-2.8); MCH 33.3 PG (29.0-34.0); MCV 100.7 FL (86-99); MEAN PLAT.VOLUME 11.3 uM^3 (9.0-12.4); MONOCYTE (%) 5.5 % (3-12); MONOCYTE COUNT 0.6 K/uL (0-0.8); NEUTROPHIL (%) 91.2 % (45-76); NEUTROPHIL COUNT 9.1 K/uL (1.8-6.4); PLATELET COUNT 137 K/uL (156-360); RED BLOOD COUNT 4.21 M/uL (4.00-5.50)
[2017-03-19 10:54] LABS: ANION GAP 7 MEQ/L (2-14); CHLORIDE 97 MEQ/L (99-109); GFR ESTIMATE (CALCULATED) > 59 mL/min/; POTASSIUM 3.5 MEQ/L (3.7-5.4); SAMPLE HEMOLYSIS CHECK 0; SAMPLE ICTERIC CHECK 0; SAMPLE LIPEMIA CHECK 0; SODIUM 141 MEQ/L (136-147); UREA NITROGEN (BUN) 20 mg/dL (9-23)
[2017-03-19 11:03] LABS: GLUCOSE 256 mg/dL (70-99)
[2017-03-19 16:53] VITALS: BP 106/59
[2017-03-19 23:40] VITALS: BP 104/55
[2017-03-20 07:37] VITALS: BP 110/71
[2017-03-20 15:52] VITALS: BP 90/55
[2017-03-21 01:01] VITALS: BP 98/52
[2017-03-21 07:55] VITALS: BP 126/70
[2017-03-21] MEDS ORDERED: SPIRIVA1 INHALATI IH (12:21)
[2017-03-21] MEDS ORDERED: PREDNISONE5 MG PO (12:21)
== END 2017-03-21 15:28 | disposition home health service (06) | DRG 208 ==
LOC: EME 17:08 → EDOF 23:56 → 3EAST 23:56 → 4WEST 03-16 00:29 → 3EAST 03-17 22:52
PROVIDERS: Emergency Medicine; Internal Medicine
DX: J96.21 Acute and chronic respiratory failure with hypoxia (principal); J44.1 Chronic obstructive pulmonary disease with (acute) exacerbation; I95.9 Hypotension, unspecified; I11.0 Hypertensive heart disease with heart failure; I50.22 Chronic systolic (congestive) heart failure; Z99.81 Dependence on supplemental oxygen; E66.2 Morbid (severe) obesity with alveolar hypoventilation; E78.5 Hyperlipidemia, unspecified; J96.22 Acute and chronic respiratory failure with hypercapnia; F10.10 Alcohol abuse, uncomplicated; F17.200 Nicotine dependence, unspecified, uncomplicated; G47.33 Obstructive sleep apnea (adult) (pediatric); I25.10 Atherosclerotic heart disease of native coronary artery without angina pectoris; I25.2 Old myocardial infarction; K21.9 Gastro-esophageal reflux disease without esophagitis; Z91.19 Patient's noncompliance with other medical treatment and regimen; Z95.1 Presence of aortocoronary bypass graft; Z95.5 Presence of coronary angioplasty implant and graft; Z68.41 Body mass index [BMI] 40.0-44.9, adult
CPT/HCPCS: 36600; 71010; 80048; 81003; 82803; 83735; 83880; 85025; 87040; 87070; 87205; 87641; 93005; 94002; 94003; 94640; 94640 76; 94660; 94760; 94799; 99202; 99281; 99285; C9113; J0330; J0456; J1644; J2250; J2704; J2930; J3475; J7030; J7512